=== PATIENT | male | born 1995 | race Caucasian/White ===

== ENCOUNTER 2019-07-10 16:39 | Emergency (ER) | payer OTHER ==
[~2019-07-10] VITALS: Ht 175.3 cm; Wt 75.7 kg
== END 2019-07-10 17:36 | disposition home or self-care (01) ==
LOC: ED 16:39
DX: S16.1XXA Strain of muscle, fascia and tendon at neck level, initial encounter (principal); V57.5XXA Driver of pick-up truck or van injured in collision with fixed or stationary object in traffic accident, initial encounter
CPT/HCPCS: 99283

== ENCOUNTER 2020-08-22 22:48 | Emergency (ER) | payer OTHER ==
[~2020-08-22] VITALS: Ht 175.3 cm; Wt 75.7 kg
--- OUTSIDE RECORDS SUMMARY | 2020-08-22 22:50 | XMS ---
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 Guidelines Source: [email or web address] [place] Guidelines Date: 07/11/2019 Care Coordination: Receiving mental health services with [email or web address].\T\nbsp; Please contact [email or web address] for mental health concerns.\T\nbsp; [facility] office: [phone]\T\nbsp; [place] office: [phone]. E.D. VISIT COUNT (12 MO.) 1 [facility] TOTAL 1 NOTE: Visits indicate total known visits. ED/UCC VISIT TRACKING (12 MO.) 08/22/2020 22:48 [facility] [place] TYPE: Emergency COMPLAINT: - PENIS ISSUE INPATIENT VISIT TRACKING (12 MO.) No inpatient visits to display in this time frame [email or web address]
[2020-08-22] MEDS ORDERED: NYSTATIN15 GM TOP (23:07)
== END 2020-08-22 23:21 | disposition home or self-care (01) ==
LOC: ED 22:48
DX: B37.42 Candidal balanitis (principal)
CPT/HCPCS: 99283-25

== ENCOUNTER 2020-09-09 15:44 | Emergency (ER) | payer OTHER ==
[~2020-09-09] VITALS: Ht 175.3 cm; Wt 75.3 kg
[~2020-09-09 15:44] MED LIST: NYSTATIN15 GM TOP
--- OUTSIDE RECORDS SUMMARY | 2020-09-09 15:48 | XMS ---
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 Guidelines Source: [facility] [employer] [place] Guidelines Date: 07/11/2019 Care Coordination: Receiving mental health services with [facility].\T\nbsp; Please contact [facility] for mental health concerns.\T\nbsp; [facility] \T\nbsp; [place] office: [phone]. E.D. VISIT COUNT (12 MO.) 2 [facility]. TOTAL 2 NOTE: Visits indicate total known visits. ED/UCC VISIT TRACKING (12 MO.) 09/09/2020 15:45 [facility] [place] TYPE: Emergency COMPLAINT: - LOWER EXTREMITY PROBLEM 08/22/2020 22:48 [facility] [place] TYPE: Emergency COMPLAINT: - PENIS ISSUE DIAGNOSES: - Other urogenital candidiasis - Candidal balanitis - Candidal balanitis INPATIENT VISIT TRACKING (12 MO.) No inpatient visits to display in this time frame [email or web address]
== END 2020-09-09 17:29 | disposition home or self-care (01) ==
LOC: ED 15:44
DX: L98.9 Disorder of the skin and subcutaneous tissue, unspecified (principal); N50.89 Other specified disorders of the male genital organs
CPT/HCPCS: 99282